=== PATIENT | male | born 1935 | race Caucasian/White ===

== ENCOUNTER → 2020-11-07 09:16 | Outpatient (CLI) | payer MEDICARE, BC, SELFPAY ==
--- NOTE | 2020-11-07 | DI.RAD.S_ITS ---
PROCEDURE: XR CHEST 2V INDICATIONS: Chest pain, unspecified TECHNIQUE: 2 views of the chest were acquired. COMPARISON: None. FINDINGS: Surgical changes and devices: None. Scattered subsegmental atelectasis and/or scarring. No focal consolidation. No pleural effusions or pneumothorax. Mediastinum: Mediastinal contours are normal. Heart size is normal. Bones and chest wall: No suspicious bony abnormalities. Soft tissues appear unremarkable. IMPRESSION: No acute disease. Dictated by: Ben Loco M.D. on 11/07/2020 at 10:03 Approved by: Ben Loco M.D. on 11/07/2020 at 10:04
== END ==
PROVIDERS: Family Provider Family Medicine; PCP Family Medicine; Referring Provider Family Medicine; Visit Provider Family Medicine
DX: R07.9 Chest pain, unspecified (principal)
CPT/HCPCS: 71046

== ENCOUNTER 2020-12-22 14:18 | Emergency (ER) | payer MEDICARE, BC, SELFPAY ==
[2020-12-22 14:25] VITALS: BP 156/74; PULSE 101; RESP 14; TEMP 36.5; O2SAT 100; BMI 26.6
--- NOTE | 2020-12-22 14:33 | DI.RAD.S_ITS ---
PROCEDURE: XR KNEE LT 3V INDICATIONS: injury 12/21/20 TECHNIQUE: 3 views of the knee were acquired. COMPARISON: [facility], , KNEE 3V RIGHT, 07/08/2010, 11:53. FINDINGS: Bones: No fractures or dislocations. No suspicious bony lesions. Moderate tricompartmental periarticular osteophyte formation. 30 mm diameter intra-articular loose body projects over the suprapatellar recess. Soft tissues: No joint effusion. No suspicious soft tissue calcifications. IMPRESSION: 1. Osteoarthritis. 2. Intra-articular loose body. Dictated by: Abebe Cordon M.D. on 12/22/2020 at 15:13 Approved by: Abebe Cordon M.D. on 12/22/2020 at 15:13
--- NOTE | 2020-12-22 14:46 | ED_ITS ---
HPI - Extremity Injury (Lower) General Chief Complaint: Extremity Injury, Lower Stated Complaint: glf Left knee right hip Time Seen by Provider: 12/22/20 14:45 Source: patient and family Mode of arrival: Wheelchair Limitations: no limitations History of Present Illness HPI Narrative: This is a pleasant 85-year-old male comes emergency department with complaint of left knee pain. Patient states tumbled down approximately 3 steps yesterday afternoon. He states that he did not hit his head, he denies any neck or back pain. He states that he extended his left arm and was able to take some of the weight on his are but also fell directly on his left knee. Patient states he has had some soft tissue discomfort in his arm but describes it as mild and he is unconcerned. His main complaint is his left knee which he describes as feeling unstable. Patient states that when he tries to weight bear he has significant discomfort. If the leg rotates while trying to move he has 10/10 pain but when he keeps his leg still his pain is very mild. Patient states it feels like it keeps wanting to give out. He has difficulty fully extending his leg but is able to flex it. Patient denies any numbness, tingling or weakness. He denies any other symptoms currently. He is on medication for hypertension, daily aspirin and drops for glaucoma. He states he has allergy to shrimp and has some mild allergies to some of the eyedrops which he states is on file with Dr. Morrell. Related Data Home Medications Medication Instructions Recorded Confirmed hydrochlorothiazide 12.5 mg PO QDAY #0 04/08/12 ASPIRIN (#ASPIRIN) 325 mg PO QDAY #0 04/11/12 Betaxolol Hydrochloride (#BETOPTIC) 1 drp OPHTH BID LEFT EYE #0 04/11/12 latanoprost [Xalatan] 1 drp OPHTH HS #0 04/11/12 EPINEPHRINE (#EPI EZ PEN) 1 mg IM PRN #0 04/18/12 FLUOCINONIDE (#LIDEX) 0.05 % TOPICAL #15 gm 04/18/12 TRIAMCINOLONE ACETONIDE (NASACORT 1 spray INTRANASAL QDAY #16.5 gm 04/18/12 AQ) [LISINOPRIL] 10 mg PO QDAY #0 04/18/12 Previous Rx's Medication Instructions Recorded hydrocodone-acetaminophen 1 tab PO Q6H PRN #10 tab 12/22/20 Allergies Allergy/AdvReac Type Severity Reaction Status Date / Time shrimp [SHRIMP] Allergy Severe ANAPHYLAXIS Verified 12/22/20 14:25 Review of Systems Review of Systems ROS Unobtainable: All systems reviewed & are unremarkable except as noted in HPI and below Patient History Medical History (Updated 12/22/20 @ 15:17 by Lucie Fitzgerald DO) Glaucoma Hypertension Surgical History (Updated 12/22/20 @ 14:56 by Lucie Fitzgerald DO) H/O right knee surgery Social History Smoking Status: Current some day smoker Smoking Status: Current some day smoker alcohol intake frequency: 0-2 drinks per day Substance Use Type: does not use Exam Narrative Exam Narrative: GENERAL: Alert and oriented x three, well-nourished elderly male in mild distress. HEENT: Head normocephalic, atraumatic, EOMI, pupils reactive, face symmetric, moist mucous membranes NECK: Supple, full range of motion, no cervical vertebral tenderness. CARDIOVASCULAR: Regular rate and rhythm without murmurs, rubs or gallops. RESPIRATORY: Breath sounds equal bilaterally, no wheezes rales or rhonchi. ABDOMEN: Soft, nontender. Normoactive bowel sounds all 4 quadrants. No guarding or rebound, rigidity, no mass EXTREMITIES: Normal range of motion, no clubbing or edema of right lower extremity. Patient does not have any bony tenderness on exam of his left lower extremity. He does have some point discomfort in his proximal quadriceps on the medial side. Patient on palpation does have some deformity his patellar alignment seems elevated with his knee flexed. He does not have any bony tenderness. He is able to flex his leg but has difficulty extending the lower leg. Patient is able to dorsiflex and plantar flex his foot. He has 2+ dorsalis. He does have swelling of the left knee with some mild erythema but no significant ecchymosis appreciated. He has normal sensation throughout the lower extremity. Neurovascularly intact NEUROLOGICAL: Cranial nerves II through XII grossly intact. Moving all extremities SKIN: Warm, dry, no petechiae, no rashes or lesions. Initial Vital Signs Initial Vital Signs: Vital Signs Temperature 97.7 F 12/22/20 14:25 Pulse Rate 101 H 12/22/20 14:25 Respiratory Rate 14 12/22/20 14:25 Blood Pressure 156/74 H 12/22/20 14:25 Pulse Oximetry 100 12/22/20 14:25 Course Orders Ordered: ED Orders 12/22/20 14:33 XR knee LT 3V Stat Consultations Consultation #1: Dr. Calabrese, suspect quadriceps tendon or possibly patellar. She did request MRI if available, knee immobilizer, crutches and follow-up with Orthopedic surgery for likely surgical repair. Time: 15:39 Vital Signs Vital signs: Vital Signs - 8 hr 12/22/20 14:25 12/22/20 16:51 Temperature 97.7 F Pulse Rate 101 H 89 Respiratory Rate 14 18 Blood Pressure 156/74 H 175/81 H Pulse Oximetry 100 98 MDM - Extremity Injury (Lower) Imaging Data Extremity x-ray #1: Radiologist's Impression: [address] [id number] ReportSigned Patient: Ron Hines#: [id number]: 6Acct:[id number]/Sex: 85 / MDate of Service: 12/22/20Loc: EDAccession Number: [id number] Procedure: XR knee LT 3V Ordering Provider: Lucie Fitzgerald D.O. PROCEDURE: XR KNEE LT 3V INDICATIONS: injury 12/21/20 TECHNIQUE: 3 views of the knee were acquired. COMPARISON: [facility], KNEE 3V RIGHT, 07/08/2010, 11:53. FINDINGS: Bones: No fractures or dislocations. No suspicious bony lesions. Moderate tricompartmental periarticular osteophyte formation. 30 mm diameter intra- articular loose body projects over the suprapatellar recess. Soft tissues: No joint effusion. No suspicious soft tissue calcifications. IMPRESSION: 1. Osteoarthritis. 2. Intra-articular loose body. Dictated by: Abebe Cordon M.D. on 12/22/2020 at 15:13 Approved by: Abebe Cordon M.D. on 12/22/2020 at 15:13 [facility] Narrative Medical decision making narrative: 85-year-old male comes emergency department with complaint of left knee pain and inability to extend his knee after fall down 3 stairs. Patient on palpation I have difficulty easily feeling his quadriceps tendon. Patient is not able to fully extend. X-ray does not show acute obvious changes but there is some calcification. Based on physical exam and discussion with Orthopedic surgery plan for follow-up possible surgical repair. We were unable to obtain MRI here in the department, patient was given a order and asked to contact to set up MRI. He is also to contact Orthopedic s urgery tomorrow morning to set up follow-up. Discharge Plan Departure Patient Disposition: Home Clinical Impression: Acute pain of left knee, Instability of left knee joint Activity Restrictions/Additional Instructions: Follow-up with Orthopedic surgery this week. Call tomorrow morning for an ap pointment. I suspect that you have torn the tendon in your knee and will likely need surgical repair. You have been provided an order for outpatient MRI for your knee. Call tomorrow to try and set up an appointment. It may require a prior authorization by your PCP or orthopedic surgery. Use walker until cleared by Orthopedic surgery. You may toe touch weight bear but keep knee immobilizer on while walking and use walker. Splint Care: Keep splint clean and dry. Elevated affected body part to decrease swelling. OK to use ice pack on the affected body part. Use for 15-20 minutes each time, for 5-6x per day. If you develop worsening pain, numbness, tingling, discoloration of the affected body part, loosen the knee immobilizer, and either see your doctor for an urgent re-assessment, or return to the Emergency Department. Return to the Emergency Department for any new or worsening symptoms. Prescriptions: New hydrocodone-acetaminophen 5-325 mg tablet 1 tab PO Q6H PRN (Reason: pain) Qty: 10 RF: 0 No Action hydrochlorothiazide 12.5 MG capsule 12.5 mg PO QDAY Qty: 0 RF: 0 Betaxolol Hydrochloride (#BETOPTIC) 1 drp OPHTH BID LEFT EYE Qty: 0 RF: 0 latanoprost [Xalatan] 0.005 % drops 1 drp OPHTH HS Qty: 0 RF: 0 ASPIRIN (#ASPIRIN) 325 mg PO QDAY Qty: 0 RF: 0 TRIAMCINOLONE ACETONIDE (NASACORT AQ) 1 spray Intranasal QDAY Qty: 16.5 RF: 0 EPINEPHRINE (#EPI EZ PEN) 1 mg IM PRN Qty: 0 RF: 0 FLUOCINONIDE (#LIDEX) 0.05 % Topical Qty: 15 RF: 0 [LISINOPRIL] 10 mg PO QDAY Qty: 0 RF: 0 Referrals: Brigitte Calabrese MD [Physician] - Fabricio Lees MD [Primary Care Provider] -
[2020-12-22 16:51] VITALS: BP 175/81; PULSE 89; RESP 18; O2SAT 98
== END 2020-12-22 16:53 | disposition home or self-care (01) ==
PROVIDERS: Emergency Provider Emergency Medicine; Family Provider Family Medicine; PCP Family Medicine
DX: M25.562 Pain in left knee (principal); W10.9XXA Fall (on) (from) unspecified stairs and steps, initial encounter
CPT/HCPCS: 73562; 99282; 99283

== ENCOUNTER → 2020-12-26 06:36 | Outpatient (CLI) | payer MEDICARE, BC, SELFPAY ==
--- NOTE | 2020-12-26 | DI.MRI.S_ITS ---
PROCEDURE: MR KNEE LT WO CON INDICATIONS: Unspecified internal derangement of left knee TECHNIQUE: Noncontrast sagittal PD fast spin echo and T2 fast spin echo with fat saturation, sagittal 3-D FLASH with fat saturation; coronal T1 spin echo and PD fast spin echo with fat saturation, and axial PD fast spin echo with fat saturation through the knee. COMPARISON: None. FINDINGS: Menisci: Medial meniscal tear involving the body and posterior horn with partial extrusion. Abnormal signal extends to the undersurface and free margin of the body and posterior horn. There is also marked truncation of the free margin of the posterior horn. Possible meniscal fragment displaced into the medial gutter although recommend correlation with arthroscopic data. Lateral meniscus intact. Cruciate ligaments: Anterior cruciate ligament appears attenuated and possibly discontinuous at the mid segment. This suggests chronic partial rupture/sprain. Posterior cruciate ligament appears intact. Medial structures: The medial collateral ligament appears intact. Semimembranosus tendon appears intact. Visualized portions of the pes anserinus tendons appear normal. No abnormal bursal fluid. Lateral structures: The lateral collateral ligament intact. Biceps femoris tendon appears intact. Popliteus tendon grossly unremarkable. Iliotibial band appears intact. Anterior structures: Ruptured appearance of the quadriceps tendon Marked thickening and high-grade partial versus complete rupture of the medial patellofemoral ligament. There is also sprain and thickening of the lateral patellofemoral ligament. There is mild patellar tendinopathy. Prepatellar and superficial infrapatellar subcutaneous edema/fluid. Bones and cartilage: No focal marrow contusion or discrete low signal fracture line. Intraosseous ganglion seen within the fibular head. Within the medial compartment, diffuse partial-thickness loss of the femoral and tibial cartilage. Within the lateral compartment, diffuse surface fraying of the femoral and tibial cartilage. Within the patellofemoral compartment, full-thickness loss of the cartilage overlying the medial patellar facet. Diffuse femoral trochlear and lateral patellar facet partial-thickness articular cartilage loss. Joint space: Moderate joint effusion No Gamez's cyst. No specific evidence of intra-articular loose body. IMPRESSION: Complex medial meniscal tear with partial extrusion and possible displaced fragments in the medial gutter , although recommend correlation with arthroscopic and clinical data. Chronic appearing partial rupture/sprain of the anterior cruciate ligament. Complete rupture appearance of the quadriceps tendon which is probably chronic. High-grade partial versus complete rupture of the medial patellofemoral ligament. Additionally, there is sprain and thickening of the lateral patellofemoral ligament. Patellar tendinopathy Moderate joint effusion Tricompartmental joint degeneration. Dictated by: Ben Loco M.D. on 12/26/2020 at 9:53 Approved by: Ben Loco M.D. on 12/26/2020 at 10:02
[2020-12-26 10:56] LABS: Add Manual Diff / Slide Review NO; Basophils Absolute Auto 100 /uL (0-100); Basophils Percent Auto 1.3 % (0-2); Eosinophils Absolute Auto 500 /uL (0-450); Eosinophils Percent Auto 5.5 % (2-4); Hematocrit 39.4 % (41-53); Hemoglobin 13.6 g/dL (13.5-17.5); Lymphocytes Absolute Auto 2300 /uL (1100-4500); Mean Corpuscular HGB Conc 34.5 % (30-36); Mean Corpuscular Hemoglobin 30.2 PG (26-34); Mean Corpuscular Volume 87.4 fL (80-100); Monocytes Absolute Auto 1000 /uL (0-900); Monocytes Percent Auto 11.3 % (3-14); Neutrophils Absolute Auto 4900 /uL (1500-7000); Neutrophils Percent Auto 55.9 % (50-75); Platelet Count 251 X10^3/uL (150-400); Red Cell Distribution Width 12.8 % (11.6-14.8); White Blood Cell Count 8.7 X10^3/uL (4.5-11.0)
[2020-12-26 11:13] LABS: BUN Creatinine Ratio 27.9 (6-22); Blood Urea Nitrogen 29 mg/dL (9-20); Calcium 10.3 mg/dL (8.4-10.2); Carbon Dioxide 26 mmol/L (22-32); Chloride 104 mmol/L (98-107); Estimated Glomerular Filt Rate > 60.0 mL/min (>60); Glucose 124 mg/dL (80-110); HEMOLYSIS < 15 (0-50); Potassium 3.2 mmol/L (3.4-5.1); Sodium 138 mmol/L (137-145)
== END ==
PROVIDERS: Family Provider Family Medicine; PCP Family Medicine; Referring Provider Family Medicine; Visit Provider Orthopaedic Surgery Foot and Ankle Surgery
DX: Z01.812 Encounter for preprocedural laboratory examination (principal); Z01.818 Encounter for other preprocedural examination; S83.232A Complex tear of medial meniscus, current injury, left knee, initial encounter; S83.512A Sprain of anterior cruciate ligament of left knee, initial encounter; M17.12 Unilateral primary osteoarthritis, left knee; M25.462 Effusion, left knee
CPT/HCPCS: 36415; 73721; 80048; 85025; 93005; 93010